=== PATIENT | female | born 1945 | race Two or more races ===

== ENCOUNTER 2021-11-26 00:05 | Inpatient (IN) | payer MEDICARE, OTHER ==
[~2021-11-26] VITALS: Ht 157.5 cm; Wt 75.1 kg
[2021-11-26 03:10] VITALS: BP 141/81
[2021-11-26] MEDS ORDERED: RIV15T (03:53)
[2021-11-26] MEDS ORDERED: AMLO-489 (03:53)
[2021-11-26 05:00] VITALS: BP 134/80
[2021-11-26] MEDS ORDERED: ONDANSETRON HCL 4 MG/2 ML VIAL IV PRN (05:15)
[2021-11-26 06:05] LABS: Urine Bacteria FEW /hpf (None Seen); Urine Blood Negative /uL (Negative); Urine Specific Gravity 1.012 (1.001-1.035); Urine WBC 1 /hpf (0 - 5)
[2021-11-26 09:00] VITALS: BP 124/79
[2021-11-26] MEDS: ENOXAPARIN SOD 80 MG/0.8ML SYRINGE SC SCH ×2 (09:30→21:22)
[2021-11-26] MEDS: PANTOPRAZOLE 40 MG TAB PO SCH (09:30)
[2021-11-26] MEDS: ASPirin 81 mg TAB PO SCH (09:31)
[2021-11-26] MEDS: amLODIPine BESYLATE 5 MG TAB PO SCH (09:31)
[2021-11-26] MEDS ORDERED: ENOXAPARIN SOD 40 MG/0.4 ML SYRINGE SC SCH (10:00)
[2021-11-26 10:13] LABS: Basophils # (auto) 0 10 ^3/uL (0-0.2); Basophils % (auto) 0.2 % (0.0-2.0); Eosinophils # (auto) 0.1 10 ^3/uL (0-0.8); Eosinophils % (auto) 1.3 % (0.0-7.0); Hematocrit 41.2 % (36.0-46.0); Hemoglobin 13.6 g/dL (12.2-16.2); Lymphocytes # (auto) 1.8 10 ^3/uL (0.4-5.4); Mean Corpuscular Hemoglobin 24.5 pg (28.0-32.0); Mean Corpuscular Hgb Conc. 33.1 g/dL (32.0-36.0); Mean Corpuscular Volume 74.2 fL (80.0-100.0); Monocytes # (auto) 0.6 10 ^3/uL (0-1.3); Monocytes % (auto) 6.5 % (0.0-12.0); Neutrophils # (auto) 6.5 10 ^3/uL (1.6-8.6); Nucleated Red Blood Cells % 0.1 %; Red Blood Cells 5.56 10^6/uL (4.0-5.20); Red Cell Distribution Width 17.6 % (11.8-14.3)
[2021-11-26 10:29] LABS: INR 1.18 (0.9-1.15)
[2021-11-26 10:31] LABS: Potassium 4.4 mmol/L (3.5-5.1)
[2021-11-26 10:36] LABS: BUN/Creatinine Ratio 15.7; Bilirubin, Total 0.6 mg/dL (0.2-1.0); Total Protein 7.1 g/dL (6.4-8.2)
[2021-11-26 13:00] VITALS: BP 110/64
[2021-11-26 17:00] VITALS: BP 123/75
[2021-11-26 22:00] VITALS: BP 124/72
[2021-11-26] MEDS ORDERED: ATORVASTATIN 20 MG TAB PO SCH ×2 (22:00)
[2021-11-26] MEDS ORDERED: PANTOPRAZOLE 40 MG TAB PO ONE (22:45)
[2021-11-26 23:18] LABS: Alcohol, Urine < 3.0 mg/dL (0-10); Amphetamine Screen, Urine NEGATIVE (NEGATIVE); Barbiturate Scree,Urine NEGATIVE (NEGATIVE); Benzodiazephine Screen, Urine NEGATIVE (NEGATIVE); Cannabinoid Screen, Urine NEGATIVE (NEGATIVE); Cocaine Screen, Urine NEGATIVE (NEGATIVE); Opiate Scree,Urine NEGATIVE (NEGATIVE); Phencyclidine Screen, Urine NEGATIVE (NEGATIVE)
[2021-11-27] VITALS (14 sets, daily range): BP systolic 129–162; BP diastolic 45–87
[2021-11-27] MEDS ORDERED: LIDOCAINE 2%HCL (LOCAL ANESTH.) INJ 10ml MDV ONE (07:30)
[2021-11-27] MEDS ORDERED: IODIXANOL 320MG/ML 100ML BTL IV ONE (07:30)
[2021-11-27] MEDS ORDERED: fentaNYL CITRATE 100 MCG/2 ML VL ONE (07:39)
[2021-11-27] MEDS ORDERED: VERAPAMIL 2.5MG/ML INJ 2ML VIAL IV ONE (07:39)
[2021-11-27] MEDS ORDERED: ANGIOMAX 250 MG VIAL IV ONE (07:39)
[2021-11-27] MEDS ORDERED: HEPARIN SODIUM (PORCINE) 5000 UNITS/ML 1ML VIAL ONE (07:39)
[2021-11-27] MEDS ORDERED: SODIUM CHL 0.9% 0 ML ONE (07:40)
[2021-11-27] MEDS ORDERED: MIDAZOLAM HCL 2MG/2ML 2ml VIAL (1mg/ml) ONE (07:40)
[2021-11-27] MEDS ORDERED: PHENYLEPHRINE IV 250 ML IV ONE (08:22)
[2021-11-27] MEDS ORDERED: ASPirin 81 mg TAB PO ONE (08:45)
[2021-11-27] MEDS ORDERED: HEPARIN DRIP/D5W 100UNITS/ML 250 ML IV ONE (08:54)
[2021-11-27] MEDS ORDERED: HEPARIN DRIP/D5W 100UNITS/ML 250 ML IV SCH (09:00)
[2021-11-27] MEDS: ASPirin 81 mg TAB PO SCH (09:17)
[2021-11-27 11:39] LABS: Basophils # (auto) 0.1 10 ^3/uL (0-0.2); Eosinophils # (auto) 0.1 10 ^3/uL (0-0.8); Monocytes # (auto) 0.5 10 ^3/uL (0-1.3); Nucleated Red Blood Cells % 0.1 %; Red Blood Cells 5.37 10^6/uL (4.0-5.20)
[2021-11-27 11:41] LABS: Basophils % (auto) 0.8 % (0.0-2.0); Eosinophils % (auto) 0.7 % (0.0-7.0); Hematocrit 39.9 % (36.0-46.0); Hemoglobin 13.3 g/dL (12.2-16.2); Lymphocytes # (auto) 1.5 10 ^3/uL (0.4-5.4); Lymphocytes % (auto) 14.5 % (10.0-50.0); Mean Corpuscular Hemoglobin 24.8 pg (28.0-32.0); Mean Corpuscular Hgb Conc. 33.4 g/dL (32.0-36.0); Mean Corpuscular Volume 74.3 fL (80.0-100.0); Monocytes % (auto) 4.8 % (0.0-12.0); Neutrophils # (auto) 8.4 10 ^3/uL (1.6-8.6); Neutrophils % (auto) 79.2 % (37.0-80.0); Red Cell Distribution Width 17.5 % (11.8-14.3); White Blood Cell 10.6 10^3/uL (4.4-10.8)
[2021-11-27 11:55] LABS: INR 1.11 (0.9-1.15); Partial Thromboplastin Time 34.2 sec (23.6-33.0)
[2021-11-27] MEDS: PANTOPRAZOLE 40 MG TAB PO SCH (13:04)
[2021-11-27] MEDS: amLODIPine BESYLATE 5 MG TAB PO SCH (13:08)
[2021-11-27 16:21] LABS: INR 1.1 (0.9-1.15); Partial Thromboplastin Time 34.5 sec (23.6-33.0)
[2021-11-27] MEDS ORDERED: HEPARIN SODIUM (PORCINE) 5000 UNITS/ML 1ML VIAL IV ONE (17:15)
== END 2021-11-27 18:25 | disposition short-term general hospital (02) | DRG 282 ==
LOC: TELE-EAST 03:00
PROVIDERS: ADMIT Internal Medicine Cardiovascular Disease; ATTEND Internal Medicine
PROC: 4A023N7 Measurement of Cardiac Sampling and Pressure, Left Heart, Percutaneous Approach (ICD-10-PCS; principal; 2021-11-27)
PROC: B211YZZ Fluoroscopy of Multiple Coronary Arteries using Other Contrast (ICD-10-PCS; 2021-11-27)
PROC: B215YZZ Fluoroscopy of Left Heart using Other Contrast (ICD-10-PCS; 2021-11-27)
DX: I21.4 Non-ST elevation (NSTEMI) myocardial infarction (principal); I10 Essential (primary) hypertension; E66.01 Morbid (severe) obesity due to excess calories; K21.9 Gastro-esophageal reflux disease without esophagitis; M15.9 Polyosteoarthritis, unspecified; Z20.822 Contact with and (suspected) exposure to COVID-19; E78.5 Hyperlipidemia, unspecified; I25.10 Atherosclerotic heart disease of native coronary artery without angina pectoris; Z79.01 Long term (current) use of anticoagulants; Z90.12 Acquired absence of left breast and nipple; Z95.1 Presence of aortocoronary bypass graft; Z85.3 Personal history of malignant neoplasm of breast; Z86.718 Personal history of other venous thrombosis and embolism; Z92.21 Personal history of antineoplastic chemotherapy; Z92.3 Personal history of irradiation; Z71.3 Dietary counseling and surveillance; Z68.30 Body mass index [BMI] 30.0-30.9, adult
CPT/HCPCS: 36415; 71045; 80053; 80061; 80307; 81001; 82306; 83036; 84443; 84484; 85025; 85610; 85730; 93005; 93306; 93458; 99152; 99153; G0378; J2001; J2250; Q9967